=== PATIENT | male | born 1990 | race Caucasian/White ===

== ENCOUNTER 2021-06-06 22:08 | Observation (INO) | payer SELFPAY ==
[~2021-06-06] VITALS: Ht 175.3 cm; Wt 81.3 kg
[2021-06-06 22:43] LABS: COLLECTION METHOD CLEAN CATCH
[2021-06-06 22:46] LABS: BASO % 0.2 % (0.0-2.0); EOS # 0.1 K/mm3 (0.0-0.7); EOS % 0.3 % (0.0-4.0); GRAN # 15.9 K/mm3 (1.4-6.5); GRAN % 86.7 % (42.2-75.2); HEMATOCRIT 43.7 % (42.0-52.0); HEMOGLOBIN 15.1 g/dl (13.5-18.0); LYMPH # 1.2 K/mm3 (1.2-3.4); LYMPH % 6.8 % (20.0-51.0); MEAN CELL VOLUME 79 fl (80.0-100.0); MEAN CORPUSCULAR HEMOGLOBIN 27 pg (27-31); MEAN CORPUSCULAR HGB CONC 35 g/dl (33.0-37.0); MEAN PLATELET VOLUME 9.6 fl (7.4-10.4); MONO % 5.5 % (1.7-9.3); PLATELET COUNT 251 K/mm3 (130-400); RED BLOOD COUNT 5.56 M/mm3 (4.20-5.60); REDCELL DISTRIBUTION WIDTH-CV 12.1 % (11.5-14.5)
[2021-06-06 22:52] LABS: MUCOUS Present (NOT PRESENT); PH 5 (5-8); SQUAMOUS EPITHELIAL None Seen /hpf (0-10); URINE APPEARANCE Hazy (CLEAR/HAZY); URINE BACTERIA None Seen /hpf (NONE SEEN); URINE BILIRUBIN Negative (NEGATIVE); URINE BLOOD Negative (NEGATIVE); URINE COLOR Yellow (YELLOW); URINE GLUCOSE Negative (NEGATIVE); URINE KETONE Trace (NEGATIVE); URINE LEUKOCYTE ESTERASE Negative (NEGATIVE); URINE NITRATE Negative (NEGATIVE); URINE PROTEIN(semi-quant) Negative (NEGATIVE)
[2021-06-06 23:05] LABS: ALBUMIN 4.6 gm/dL (3.5-5.0); BILIRUBIN,TOTAL 0.9 mg/dL (0.2-1.2); CALCIUM 9.4 mg/dL (8.4-10.2); CREATININE, serum 1.06 mg/dL (0.72-1.25); POTASSIUM 3.8 mmol/L (3.5-4.5); TOTAL PROTEIN 7.4 gm/dL (6.2-8.1)
[2021-06-07] VITALS (11 sets, daily range): BP systolic 115–154; BP diastolic 61–78; PULSE 54–84; TEMP 97.5–98.3
--- NOTE | 2021-06-07 10:57 | NUR ---
PATIENT OFF OF FLOOR TO SURGERY
--- NOTE | 2021-06-07 11:15 | NUR ---
Initial visit; Patient thanked Political Analyst for looking in on him and offering a successful surgical procedure and God's blessings. Political Analyst will keep Nelson in her prayers.
[2021-06-07] MEDS ORDERED: NORCO 325 MG-51 TAB PO (12:39)
--- NOTE | 2021-06-07 15:39 | NUR ---
DISCHARGE INSTRUCTIONS PROVIDED, FOLLOW UP APPT DISCUSSED, MEDICATIONS REVIEWED. IV DC'D. PATIENT DENIES ANY QUESTIONS OR CONCERNS AT THIS TIME. PATIENT ESCORTED OUT VIA WHEELCHAIR.
--- NOTE | 2021-06-07 16:14 | NUR ---
Web Marketing Analyst attempted to meet with patient twice for intake assessment/discharge planning and pt remained in surgery at this time; will re-attempt as possible.
== END 2021-06-07 15:55 | disposition home or self-care (01) ==
LOC: COL.ER 22:08 → SURG 06-07 00:33
PROVIDERS: Student in an Organized Health Care Education/Training Program; ADMIT Surgery
DX: K35.80 Unspecified acute appendicitis (principal); K21.9 Gastro-esophageal reflux disease without esophagitis; Z86.16 Personal history of COVID-19
CPT/HCPCS: G0378; J0690; J1100; J1885; J2270; J2405; J2543; J2704; J3010; J7030; Q9967